=== PATIENT | female | born 1955 | race Asian ===

== ENCOUNTER 2021-09-02 15:35 | Inpatient (IN) | payer OTHER ==
[~2021-09-02] VITALS: Ht 142.2 cm; Wt 41.7 kg
[2021-09-02] MEDS ORDERED: IV NS 0.9% 1,000 ML BAG IV ONE (16:00)
[2021-09-02] MEDS ORDERED: ONDANSETRON HCL/PF 4 MG/2 ML VIAL IVP ONE (16:00)
[2021-09-02] MEDS ORDERED: MORPHINE SULFATE INJ 2 MG/ML DISP.SYRIN IV ONE ×2 (16:00→18:30)
--- NOTE | 2021-09-02 16:05 | NUR ---
BIB FAMILY C/O ABDOMINAL PAIN MOSTLY ON HER RIGHT SIDE. PT ATTACHED TO MONITOR. WARM BLANKET PROVIDED FOR COMFORT. WILL CONTINUE TO MONITOR.
[2021-09-02] MEDS ORDERED: ONDANSETRON HCL/PF 4 MG/2 ML VIAL ONE ×2 (16:07→17:58)
[2021-09-02] MEDS ORDERED: MORPHINE SULFATE INJ 4 MG/ML DISP.SYRIN ONE ×2 (16:08→17:58)
[2021-09-02 16:13] LABS: BASOPHILS % (AUTO) 0.5 % (0.0-2.0); EOSINOPHILS % (AUTO) 0.9 % (0.0-6.0); HEMATOCRIT 38 % (33-45); HEMOGLOBIN 12.3 g/dL (11.5-14.8); LYMPHOCYTES # (AUTO) 1.3 K/uL (0.8-4.8); LYMPHOCYTES % (AUTO) 15.2 % (20.0-44.0); MEAN CORPUSCULAR HGB CONC 33 g/dl (31.0-36.0); MEAN CORPUSCULAR VOLUME 91 fL (82-100); MONOCYTES # (AUTO) 0.7 K/uL (0.1-1.30); MONOCYTES % (AUTO) 8.5 % (2.0-12.0); NEUTROPHILS # (AUTO) 6.4 K/uL (1.8-8.9); NEUTROPHILS % (AUTO) 74.9 % (43.0-81.0); PLATELET COUNT (AUTO) 292 K/uL (150-450); RED BLOOD CELL COUNT(AUTO) 4.15 MIL/uL (4.0-5.2); WHITE BLOOD COUNT (AUTO) 8.6 K/uL (4.3-11.0)
[2021-09-02 16:55] LABS: ALBUMIN 3.7 g/dL (3.4-5.0); BILIRUBIN,DIRECT 0.1 mg/dL (0.0-0.2); BILIRUBIN,TOTAL 0.4 mg/dL (0.2-1.0); CREATININE 0.8 mg/dL (0.6-1.3); POTASSIUM 4.2 mmol/L (3.5-5.1); TOTAL PROTEIN, SERUM 7.5 g/dL (6.4-8.2)
--- NOTE | 2021-09-02 17:42 | NUR ---
PAGED SURGERY MEDICAID BILLER.
[2021-09-02] MEDS ORDERED: HYDR-3980 PO (17:49)
[2021-09-02] MEDS ORDERED: DULO30CA2 PO (17:49)
[2021-09-02] MEDS ORDERED: ADAL40KI SQ (17:49)
[2021-09-02] MEDS ORDERED: LEVO75TA7 PO (17:49)
--- NOTE | 2021-09-02 17:55 | NUR ---
COVID TEST COLLECTED AND SENT
[2021-09-02] MEDS ORDERED: LIDOCAINE VISCOUS 2% UD 15 ML UDC ONE (17:58)
[2021-09-02] MEDS ORDERED: LIDOCAINE VISCOUS 2% UD 15 ML UDC MM ONE (18:00)
--- NOTE | 2021-09-02 18:15 | NUR ---
CALLED NURSING SUP FOR M/S BED.
[2021-09-02] MEDS ORDERED: ONDANSETRON HCL/PF - ER 4 MG/2 ML VIAL IV ONE (18:30)
--- NOTE | 2021-09-02 18:31 | NUR ---
URINE COLLECTED AND SENT
[2021-09-02 18:49] LABS: CALCIUM, SERUM 8.9 mg/dL (8.5-10.1)
--- NOTE | 2021-09-02 19:23 | NUR ---
PAGED [facility].
[2021-09-02 19:43] LABS: BILIRUBIN,URINE NEGATIVE (NEGATIVE); COLOR,URINE YELLOW (YELLOW); LEUKOCYTE ESTERASE ,URINE TRACE (NEGATIVE); NITRITE, URINE NEGATIVE (NEGATIVE); PROTEIN,URINE NEGATIVE (NEGATIVE); UGLUCOSE NEGATIVE (NEGATIVE); UROBILINOGEN,URINE 0.2 EU/dL (0.2)
--- NOTE | 2021-09-02 19:46 | NUR ---
PT AWAKE AND ALERT RESTING COMORTABLY IN BED. ALL NEEDS MET AND NO COMPLAINTS AT THIS TIME. ALL V/S STABLE.
[2021-09-02 19:54] LABS: BACTERIA,URINE None seen /HPF (None Seen); SQUAMOUS EPITHELIAL CELL,UR 0-2 /HPF (None Seen)
[2021-09-02] MEDS ORDERED: LABETALOL 20 MG/4 ML VIAL IV PRN (20:00)
[2021-09-02] MEDS ORDERED: ONDANSETRON HCL/PF 4 MG/2 ML VIAL IVP PRN (20:00)
[2021-09-02] MEDS: IV NS 0.9% 1,000 ML IV SCH (20:11)
--- NOTE | 2021-09-02 20:59 | NUR ---
REPORT GIVEN TO LITZY
--- NOTE | 2021-09-02 21:25 | NUR ---
PT TRANSPORTED TO ROOM 320 VIA GURNEY WITHOUT INICIDENT
--- NOTE | 2021-09-02 21:30 | NUR ---
RN ADMITTING NOTE PATIENT TRANSFERRED VIA GURNEY. PATIENT ABLE TO AMBULATE FROM GURNEY TO BED WITH ASSISTANCE. PATIENT IS A/O X 4 ABLE TO MAKE NEEDS KNOWN. CURRENTLY ON RA, TOLERATING WELL. PATIENT COMPLAINS OF ABD PAIN. NO NAUSEA OR VOMITING AT THIS TIME. PATIENT HAS NPO ORDER. PATIENT HAS A LFA 20 G PATENT AND INTACT WITH NS @ 75 ML/HR ONGOING. PER PATIENT, SHE HAS ALL COVID VACCINES AND FLU VACCINE. PATIENT WALKS WITH A WALKER AT HOME D/T BACK AND STOMACH PAIN. 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 GRACE PROVIDED WALKER AND BSC AT BEDSIDE. BELONGINGS INVENTORIED. SKIN INTACT. ORIENTED PATIENT TO RM, RN, AND ALMOND HULLER. SAFETY MEASURES IN PLACE: BED LOCKED AND IN LOWEST POSITION, CALL LIGHT WITHIN REACH, SIDE RAILS UP. WILL MONITOR PATIENT CLOSELY
[2021-09-02 22:00] VITALS: BP 148/74
[2021-09-02] MEDS: MORPHINE SULFATE INJ 2 MG/ML DISP.SYRIN IV PRN (22:21)
--- NOTE | 2021-09-02 22:21 | NUR ---
MORPHINE 2 MG IV GIVEN FOR ABD PAIN. WILL REASSESS AT A LATER TIME
--- NOTE | 2021-09-02 22:45 | NUR ---
DR. RUVALCABA AT BEDSIDE. OK TO HAVE VERY LITTLE ICE CHIPS AT THIS TIME. PT WILL BE SEEN BY GEN SANTO IN AM. AWARE THAT PATIENT IS REFUSING NGT.
[2021-09-02] MEDS ORDERED: ALEN70TA3 PO (22:51)
[2021-09-02] MEDS ORDERED: OMEP40CA21 PO (22:51)
[2021-09-03] MEDS: MORPHINE SULFATE INJ 2 MG/ML DISP.SYRIN IV PRN ×3 (02:45→11:49)
--- NOTE | 2021-09-03 02:45 | NUR ---
MORPHINE 2 MG IV GIVEN FOR ABD PAIN. WILL REASSESS AT A LATER TIME
[2021-09-03 06:08] LABS: ALBUMIN 3.3 g/dL (3.4-5.0); BILIRUBIN,TOTAL 0.8 mg/dL (0.2-1.0); CALCIUM, SERUM 7.5 mg/dL (8.5-10.1); CREATININE 0.7 mg/dL (0.6-1.3); MAGNESIUM 1.8 mg/dL (1.8-2.4); POTASSIUM 3.9 mmol/L (3.5-5.1); TOTAL PROTEIN, SERUM 6.8 g/dL (6.4-8.2)
[2021-09-03 06:12] LABS: BASOPHILS % (AUTO) 0.6 % (0.0-2.0); EOSINOPHILS % (AUTO) 1.5 % (0.0-6.0); HEMATOCRIT 38 % (33-45); HEMOGLOBIN 12.6 g/dL (11.5-14.8); LYMPHOCYTES # (AUTO) 1.4 K/uL (0.8-4.8); LYMPHOCYTES % (AUTO) 20.7 % (20.0-44.0); MEAN CORPUSCULAR HGB CONC 33 g/dl (31.0-36.0); MEAN CORPUSCULAR VOLUME 89 fL (82-100); MONOCYTES # (AUTO) 0.7 K/uL (0.1-1.30); MONOCYTES % (AUTO) 9.8 % (2.0-12.0); NEUTROPHILS # (AUTO) 4.7 K/uL (1.8-8.9); NEUTROPHILS % (AUTO) 67.4 % (43.0-81.0); PLATELET COUNT (AUTO) 296 K/uL (150-450); RED BLOOD CELL COUNT(AUTO) 4.25 MIL/uL (4.0-5.2); WHITE BLOOD COUNT (AUTO) 6.9 K/uL (4.3-11.0)
--- NOTE | 2021-09-03 06:54 | NUR ---
RN CLOSING NOTE PATIENT IN BED, EASILY AWAKENED. PATIENT IS A/O X 4 ABLE TO MAKE NEEDS KNOWN. CURRENTLY ON RA, TOLERATING WELL. PATIENT COMPLAINS OF ABD PAIN. NO NAUSEA OR VOMITING AT THIS TIME. PAIN MANAGED WITH MORPHINE AND NAUSEA WITH ZOFRAN. NPO STATUS MAINTAINED. ICE CHIPS OK. PATIENT HAS A LFA 20 G PATENT AND INTACT WITH NS @ 75 ML/HR ONGOING. SAFETY MEASURES IN PLACE: BED LOCKED AND IN LOWEST POSITION, CALL LIGHT WITHIN REACH, SIDE RAILS UP. ALL NEEDS MET AND ATTENDED. ALL ORDERS CARRIED OUT. WILL ENDORSE TO DAY SHIFT NURSE FOR HARJEET
--- NOTE | 2021-09-03 07:30 | NUR ---
MS RN OPENING NOTES RECEIVED PATIENT LYING IN BED, EYES CLOSED. RESPONSIVE TO VERBAL AND TACTILE STIMULI. A/O X4. NO SOB OR NOTED. STABLE ON ROOM AIR. CURRENTLY NPO. HAS LEFT FOREARM IV ACCESS #20G WITH NS RUNNING @ 75 ML/HR. PATENT AND INFUSING WELL. SAFETY PRECAUTIONS IN PLACED. WILL CONTINUE PLAN OF CARE.
[2021-09-03 08:01] VITALS: BP 114/68
[2021-09-03] MEDS: IV NS 0.9% 1,000 ML IV SCH (10:01)
--- NOTE | 2021-09-03 13:09 | NUR ---
RN MS NOTES SPOKE WITH DR. LO, ORDERED SMALL BOWEL THROUGH, ORDER NOTED.
--- NOTE | 2021-09-03 15:15 | NUR ---
RN MS NOTES SEEN AND EXAMINED BY DR. BENITES, PLAN OF CARE DISCUSSED WITH PT, VERBALIZED UNDERSTANDING, ORDERS GIVEN, NOTED AND CARRIED OUT.
[2021-09-03 16:45] VITALS: BP 109/65
--- NOTE | 2021-09-03 18:06 | NUR ---
MS RN NURSING NOTES PATIENT SEEN AND EXAMINED BY DR. LO. EXPLAINED PLAN OF CARE WITH PATIENT AND , VERBALIZED UNDERSTANDING.
--- NOTE | 2021-09-03 19:21 | NUR ---
MS RN CLOSING NOTES PATIENT RESTING IN BED THROUGHOUT THE DAY. A/O X4. C/O ABDOMINAL PAIN, PRN MORPHINE SULFATE ADMINISTERED, REASSESSED AND EFFECTIVE. BREATHING EVEN AND UNLABORED. USES BEDSIDE COMMODE. HAS LEFT FOREARM IV ACCESS #20G WITH NS RUNNING @ 75 ML/HR. AWAITING KUB RESULTS. SAFETY MEASURES IN PLACED: BED LOW AND LOCKED, SIDE RAILS UP X2, CALL LIGHT WITHIN REACH.
[2021-09-03 20:00] VITALS: BP 97/49
--- NOTE | 2021-09-03 20:10 | NUR ---
MS RN OPENING NOTES: RECEIVED PATIENT AWAKE IN BED, BED IN LOW POSITION, CALL LIGHTS WITHIN REACH, NO COMPLAIN OF PAIN AND DISCOMFORT AT THIS TIME, PATIENT IS A/O X4 ABLE TO MAKE NEEDS KNOWN, AMBULATORY WITH ASSISTANCE, WITH LFA#20 WITH ONGOING NSS@75ML PER HOUR INFUSING WELL, PATIENT ON NPO, PATIENT KEPT CLEAN AND DRY ALL NEEDS MET WILL CONTINUE TO MONITOR.
[2021-09-03] MEDS ORDERED: DIATR MEGLU/DIATRIZOATE SODIUM 120 ML BOTTLE (GASTROGRAPHIN) ONE (23:23)
[2021-09-04] MEDS ORDERED: IV NS 0.9% 1,000 ML IV ONE (01:00)
--- NOTE | 2021-09-04 06:57 | NUR ---
RN CLOSING NOTES: PATIENT SLEEP IN BED COMFORTABLY, BED IN LOW POSITION, CALL LIGHTS WITHIN REACH, NO COMPLAIN OF PAIN AND DISCOMFORT ON NPO WITH LFA#20 NS@75ML PER HOUR INFUSING WELL, PATIENT ON ROOM AIR SATURATING WELL, AMBULATORY WITH ASSISTANCE, PATIENT KEPT CLEAN AND DRY ALL NEEDS MET ENDORSE TO INCOMING SHIFT.
--- NOTE | 2021-09-04 07:30 | NUR ---
RN MS NOTES PT IN BED, AWAKE, ALERT AND ORIENTED, STATED THAT HER PAIN IS BETTER TODAY, ABLE TO TRANSFER TO BEDSIDE COMMODE, PT COMPLETED XR SMALL BOWEL FOLLOW THROUGH, IV FLUIDS INFUSING WELL, KEPT NPO ORDERED.
[2021-09-04 08:00] VITALS: BP 126/74
[2021-09-04 16:00] VITALS: BP 123/66
--- NOTE | 2021-09-04 19:00 | NUR ---
RN MS NOTES PT IN BED, RESTING, NO COMPLAINT OF PAIN, RESPIRATIONS NORMAL, TOLERATES CLEAR LIQUID DIET SO FAR, NO COMPLAINT OF NAUSEA, NO VOMITING NOTED, ABLE TO TRANSFER HERSELF TO BEDSIDE COMMODE, STATED SHE FEELS BETTER TODAY.
--- NOTE | 2021-09-04 19:20 | NUR ---
RN opening notes Pt is sitting in bed comfortably talking on the phone. Pt is alert and orientedX4. On room air. No S/s of distress noted. IV site LFA# 20 is clean, intact, flushes well and SL. Safety precautions is maintained. Bed at low position, brakes locked, side rails upX2, bedside commode at the bedside, hob elevated and call light is within reach. Will continue to monitor.
[2021-09-04 20:00] VITALS: BP 128/70
--- NOTE | 2021-09-05 06:40 | NUR ---
RN closing notes Pt is resting in bed comfortably. Pt is alert and orientedX4. On room air. No S/s of distress noted. Vs is stable. IV site LFA# 20 is clean, intact, flushes well and SL. VS is stable. Kept Pt clean, dry and comfortable. safety precautions is maintained. bed at low position, brakes locked, side rails upX2, bedside commode at the bedside, hob elevated and call light is within reach. Will endorse to am nurse for HARJEET.
--- NOTE | 2021-09-05 07:33 | NUR ---
RN OPENING NOTES Patient seen comfortably lying in bed, no apparent distress noted, respirations even and unlabored, no shortness of breath, denies any pain or discomfort at this time, no grimacing. Call light left within reach, safety precautions in place, brakes locked, side rails up X 2, will monitor closely for any changes.
[2021-09-05 08:00] VITALS: BP 139/74
[2021-09-05 16:00] VITALS: BP 123/79
--- NOTE | 2021-09-05 18:18 | NUR ---
RN CLOSING NOTES Patient lying in bed, no shortness of breath, respirations even and unlabored, remained afebrile during shift, denies any pain or discomfort at this time, no dizziness, no palpitations, no chest pain. All due medications given per MD order and tolerated well. Kept clean and dry, call light left within reach, all needs attended, aspiration precautions observed at all times, kept head of bed elevated, safety precautions in place, frequent visual checks rendered, brakes locked, side rails up X 2, will endorse to next shift for continuity of care.
--- NOTE | 2021-09-05 19:30 | NUR ---
RN OPENING NOTE PATIENT IN BED, AWAKE. PATIENT IS A/O X 4 ABLE TO MAKE NEEDS KNOWN. PATIENT IS CURRENTLY ON RA, TOLERATING WELL, NOT IN ANY APPARENT DISTRESS. PATIENT DOES NOT COMPLAIN OF ABD PAIN BUT COMPLAINS OF HEADACHE. DOES NOT WANT ANY PAIN MEDICATION. PATIENT CURRENTLY ON CLEAR LIQUID DIET. NO N/V VERBALIZED AT THIS TIME. PATIENT HAS A LFA 20 G SALINE LOCKED. SAFETY MEASURES IN PLACE: BED LOCKED AND IN LOWEST POSITION, CALL LIGHT WITHIN REACH, SIDE RAILS UP. WALKER AND BSC AT BEDSIDE. WILL MONITOR PATIENT CLOSELY.
[2021-09-05 20:00] VITALS: BP 143/88
--- NOTE | 2021-09-06 06:45 | NUR ---
RN CLOSING NOTE PATIENT IN BED, AWAKE. PATIENT IS A/O X 4 ABLE TO MAKE NEEDS KNOWN. PATIENT IS CURRENTLY ON RA, TOLERATING WELL, NOT IN ANY APPARENT DISTRESS. COMPLAINS OF MILD BACK PAIN BUT DOES NOT WANT ANY MEDICATION. NO N/V THROUGHOUT THE SHIFT. PATIENT HAS A LFA 20 G SALINE LOCKED ONLY. SAFETY MEASURES IN PLACE: BED LOCKED AND IN LOWEST POSITION, CALL LIGHT WITHIN REACH, SIDE RAILS UP. WALKER AND BSC AT BEDSIDE. ALL NEEDS MET AND ATTENDED. ALL ORDERS CARRIED OUT. WILL ENDORSE TO DAY SHIFT NURSE FOR HARJEET. NOTIFIED DIETARY FOR PATIENT TO HAVE TEA WITH CREAM AND SUGAR FOR BREAKFAST.
[2021-09-06 08:00] VITALS: BP 117/72
--- NOTE | 2021-09-06 13:57 | NUR ---
Patient to be discharged home today, no apparent distress noted, no shortness of breath, respirations even and unlabored, denies any pain or discomfort at this time, no dizziness, no palpitations, no chest pain, no numbness, no s/s of hypo/hyperglycemia, no change in level in consciousness, able to follow simple commands, can make needs known, can ambulate with steady gait, no tremors. Abdominal bowel sound present in all quadrants, no grimacing when abdomen is palpated, per patient she had a bowel movement today. Patient made aware of the situation, she signed all discharge paper works, CD of radiographic results provided per patient's request. All belongings taken, inventory list signed by patient. Health teaching provided, verbalized understanding and gratitude. Reminded patient to schedule a follow up with primary physician, verbalized understanding and gratitude. Skin assessment done prior to discharge, skin intact, warm to touch, no pallor or cyanosis noted. Peripheral IV line on left forearm removed prior to discharge, complete and intact, no excessive bleeding noted, site covered with dry dressing. Name wristband removed prior to discharge, surgical mask provided for patient to use. ECOLOGY TEACHER assisted patient going to the hospital parking lot via wheelchair, left unit at [id number] with via private car, stable condition, exit care documents handed to patient.
== END 2021-09-06 14:00 | disposition home or self-care (01) | DRG 390 ==
LOC: ER 15:35 → MED 20:25
PROVIDERS: ADMIT Internal Medicine; ATTEND Internal Medicine
DX: K56.609 Unspecified intestinal obstruction, unspecified as to partial versus complete obstruction (principal); Z85.038 Personal history of other malignant neoplasm of large intestine; Z85.028 Personal history of other malignant neoplasm of stomach; Z98.84 Bariatric surgery status; Z96.643 Presence of artificial hip joint, bilateral; Z90.49 Acquired absence of other specified parts of digestive tract; E89.0 Postprocedural hypothyroidism; Z87.898 Personal history of other specified conditions; Z20.822 Contact with and (suspected) exposure to COVID-19
CPT/HCPCS: 36415; 74018; 74250-TC; 80048-TC; 80053-TC; 80076-TC; 81001; 83605-TC; 83690-TC; 83735-TC; 84100-TC; 85025-TC; 87081-TC; 97116-TC; 97530-TC; C9803; G0378; J2270; J2405; J7030; Q9963